=== PATIENT | male | born 1940 | race Caucasian/White ===

== ENCOUNTER 2025-07-07 11:21 | Emergency (ER) | payer MEDICARE, SELFPAY ==
[2025-07-07 11:26] VITALS: BP 116/68
[2025-07-07 12:29] LABS: COVID-19 Antigen Negative (Negative)
[2025-07-07 12:35] LABS: ALT (SGPT) 29 U/L (0-50); AST (SGOT) 21 U/L (17-59); Albumin 3.3 g/dl (3.5-5.0); Alkaline Phosphatase 97 U/L (38-126); Blood Urea Nitrogen 42 mg/dl (9-20); Calcium 8.7 mg/dl (8.4-10.2); Carbon Dioxide 20 mmol/L (22-30); Chloride 108 mmol/L (98-107); Glucose 83 mg/dl (70-99); Potassium 3.8 mmol/L (3.5-5.1); Sodium 132 mmol/L (135-145); Total Protein 5.4 g/dl (6.3-8.2); eGFR 20.94
[2025-07-07 12:37] LABS: Hematocrit 28.6 % (39.0-52.0); Hemoglobin 9.2 g/dL (13.0-18.0); Mean Corp Hgb Conc. 32.2 g/dL (33.0-37.0); Mean Corpuscular Volume 120.2 fL (80.0-94.0); Red Cell Dist. Width 15.4 % (11.5-14.5)
--- NOTE | 2025-07-07 13:16 | ED.GENMED ---
History of Present Illness
<Jaida Claudio PA-C - Last Filed: 07/07/25 15:27>
General
Chief Complaint: Breathing Problem
Time Seen by Provider: 07/07/25 12:27
History of Present Illness
History of Present Illness:
SEE mdm
Phy Exam
<Jaida Claudio PA-C - Last Filed: 07/07/25 15:27>
Physical Exam
Physical Exam:
SEE mdm
Scores
<Jaida Claudio PA-C - Last Filed: 07/07/25 15:27>
Heart Failure Risk
Heart Failure Risk Score: Not Applicable
Course
<Jaida Claudio PA-C - Last Filed: 07/07/25 15:27>
Orders/Labs/Results
Orders:
Orders
07/07/25 11:30
ECG [Electrocardiogram (*1)] Urgent
Reason for Study: Shortness of Breath
CR Chest - 2 Views Urgent
Comment:
Reason For Exam: SOB, cough
07/07/25 11:31
EKG- Treatment ONCE
07/07/25 11:41
COVID-19 Antigen Urgent
Source: Nasal Swab
Complete Blood Count/With Diff Urgent
Comprehensive Metabolic Panel Urgent
Influenza A+B Rapid Molecular Urgent
ANA Source: Nasal Swab
Specimen Description:
07/07/25 13:17
Pro-BNP [NT-proBNP] Urgent
07/07/25 14:09
Amoxicillin 500 mg/Clav 125 mg [Augmentin 500 mg/125 mg] 1 tablet PO NOW STA
Abnormal Lab Results
07/07/25
11:41
RBC 2.38 L 10^6/uL
(4.70-6.10)
Hgb 9.2 L g/dL
(13.0-18.0)
Hct 28.6 L %
(39.0-52.0)
MCV 120.2 H fL
(80.0-94.0)
MCH 38.7 H pg
(27.0-31.0)
MCHC 32.2 L g/dL
(33.0-37.0)
RDW 15.4 H %
(11.5-14.5)
MPV 14.1 H fL
(7.4-10.4)
Abs Immat Gran (auto) 0.3 H 10^3/uL
(0-0.05)
Immature Gran % 5.4 H %
(0-0.5)
Sodium 132 L mmol/L
(135-145)
Chloride 108 H mmol/L
(98-107)
Carbon Dioxide 20 L mmol/L
(22-30)
BUN 42 H mg/dl
(9-20)
Creatinine 2.9 H mg/dL
(0.7-1.3)
Total Protein 5.4 L g/dl
(6.3-8.2)
Albumin 3.3 L g/dl
(3.5-5.0)
07/07/25 11:41
07/07/25 11:41
Vital Signs
Initial and Last Documented VS:
Initial Vital Signs
Temp Pulse Resp BP Pulse Ox
36.4 C 60 20 116/68 100
07/07/25 11:26 07/07/25 11:26 07/07/25 11:26 07/07/25 11:26 07/07/25 11:26
Last Documented Vital Signs
Temp Pulse Resp BP Pulse Ox
37.0 C 53 20 131/85 96
07/07/25 14:36 07/07/25 14:36 07/07/25 14:36 07/07/25 14:36 07/07/25 14:36
<Dedrick Gamboa Yuri, DO - Last Filed: 07/07/25 14:44>
Orders/Labs/Results
Orders:
Orders
07/07/25 11:30
ECG [Electrocardiogram (*1)] Urgent
Reason for Study: Shortness of Breath
CR Chest - 2 Views Urgent
Comment:
Reason For Exam: SOB, cough
07/07/25 11:31
EKG- Treatment ONCE
07/07/25 11:41
COVID-19 Antigen Urgent
Source: Nasal Swab
Complete Blood Count/With Diff Urgent
Comprehensive Metabolic Panel Urgent
Influenza A+B Rapid Molecular Urgent
ANA Source: Nasal Swab
Specimen Description:
07/07/25 13:17
Pro-BNP [NT-proBNP] Urgent
07/07/25 14:09
Amoxicillin 500 mg/Clav 125 mg [Augmentin 500 mg/125 mg] 1 tablet PO NOW STA
Abnormal Lab Results
07/07/25
11:41
RBC 2.38 L 10^6/uL
(4.70-6.10)
Hgb 9.2 L g/dL
(13.0-18.0)
Hct 28.6 L %
(39.0-52.0)
MCV 120.2 H fL
(80.0-94.0)
MCH 38.7 H pg
(27.0-31.0)
MCHC 32.2 L g/dL
(33.0-37.0)
RDW 15.4 H %
(11.5-14.5)
MPV 14.1 H fL
(7.4-10.4)
Abs Immat Gran (auto) 0.3 H 10^3/uL
(0-0.05)
Immature Gran % 5.4 H %
(0-0.5)
Sodium 132 L mmol/L
(135-145)
Chloride 108 H mmol/L
(98-107)
Carbon Dioxide 20 L mmol/L
(22-30)
BUN 42 H mg/dl
(9-20)
Creatinine 2.9 H mg/dL
(0.7-1.3)
Total Protein 5.4 L g/dl
(6.3-8.2)
Albumin 3.3 L g/dl
(3.5-5.0)
07/07/25 11:41
07/07/25 11:41
Vital Signs
Initial and Last Documented VS:
Initial Vital Signs
Temp Pulse Resp BP Pulse Ox
36.4 C 60 20 116/68 100
07/07/25 11:26 07/07/25 11:26 07/07/25 11:26 07/07/25 11:26 07/07/25 11:26
Last Documented Vital Signs
Temp Pulse Resp BP Pulse Ox
37.0 C 53 20 131/85 96
07/07/25 14:36 07/07/25 14:36 07/07/25 14:36 07/07/25 14:36 07/07/25 14:36
<Jaida Claudio PA-C - Last Filed: 07/07/25 15:27>
MDM/Problems Addressed
Differential Diagnosis Includes:
see MDM
MDM/Problems Addressed:
Note:
CHIEF COMPLAINT(S)
Shortness of breath.
HISTORY OF PRESENT ILLNESS
The patient is an 84-year-old male with a known history of multiple myeloma who presents with shortness of breath. The symptoms began approximately one week ago and have progressively worsened. The patient reports visiting a walk-in clinic in [place]
where no blood work was performed; however, pneumonia was considered unlikely, and he was advised to visit the emergency department if symptoms persisted. The patient describes the shortness of breath as exacerbated by exertion, specifically when
lifting or performing physical tasks. The patient denies fever or chills. He reports a productive cough at times but cannot specify the type of sputum.
PAST MEDICAL AND SURIGICAL HISTORY
The patient has a history of multiple myeloma and has been treated at a cancer center. He has undergone a cardiac catheterization four years ago, and he has a history of hypertension. The patient denies any history of cardiac
stents or coronary artery bypass grafting.
SOCIAL DETERMINANTS AFFECTING HEALTH
The patient mentions having 'bossy kids' and family stress, implying some degree of family or household stress.
SOCIAL HISTORY
The patient has a history of smoking cigars in the past but no cigarette smoking.
PHYSICAL EXAM
GENERAL: Alert , in no apparent distress
EYE: pupils equal and reactive
NECK: Supple
ENT: b/l TM s clear, pharynx erythematous but no tonsillar hypertrophy or exudates
CARDIAC: Regular rate and rhythm, no edema
LUNGS: Clear breath sounds bilaterally, no acute respiratory distress, no wheezes/rales/rhonchi, occasional wet sounding cough
ABDOMEN: Soft, without focal tenderness, no r/g, no cvat, normal bowel sounds
NEUROLOGICAL: Alert and oriented, no focal neuro deficits
SKIN: Warm and dry, skin intact.
MUSCULOSKELETAL: Trace edema, symmetric well perfused.
PSYCH: Normal and appropriate interaction.
- Extremities: Swelling in the legs is noted, with a history of diuretic use as needed.
PROBLEM LIST
Acute:
- Shortness of breath with exertion.
- New-onset or undocumented atrial fibrillation.
Chronic:
- Multiple myeloma
- Hypertension
PLAN
The plan includes reviewing the chest X-ray and blood work results, managing the atrial fibrillation, and addressing the swelling in the legs. The patient will be further evaluated to determine if diuretics need adjustment based on symptoms and lab
work.
DIFFERENTIAL DIAGNOSIS
The Differential Diagnosis includes, in no particular order and is not limited to:
1. Heart failure exacerbation
2. Pulmonary embolism
3. Pneumonia
4. Pulmonary edema
5. Atrial fibrillation with rapid ventricular rate
6. Chronic obstructive pulmonary disease exacerbation
7. Anemia
8. Ischemic heart disease
9. Interstitial lung disease
10. Medication side effects.
84-year-old male with history of multiple myeloma on treatment, lenalidomide
On his off week currently here with 3 weeks of cough which is wet sounding, improved with guaifenesin but has not gone away, he now he has some dyspnea especially with exertion, more with lifting than with just walking. Patient says he just feels
more wiped out. He is not having any exertional chest pain, hemoptysis, significant edema in his legs. He did have a little bit of edema which is typical for him. He does travel to and from [place] where he is originally from and says that he did
recently travel there and back. He is never had a blood clot. On exam he is well-appearing, he does have a wet sounding cough but is not hypoxic or tachypneic. His EKG is a sinus rhythm with PACs and occasional PVC, he does not have A-fib as it
is read by the computer. I reviewed this with the ED attending who agreed. Patient also has no history of A-fib. His labs are a stable hemoglobin of 9.2 which he tells me is typical for him, platelets of 134 which is improved for him, he has a
creatinine of 2.9 which is also typical for him, he used to have a creatinine of 5 before his treatment initiated at the [facility] cancer center at [facility] with Dr. Green. Patient asked me to speak with Dr. Green or his staff regarding what
antibiotic to give him if I were going to give him 1. His chest x-ray was independently reviewed by me with out signs of pneumonia however I am going to treat him with Augmentin for bronchitis. I spoke with the nurse at the oncology center and she
was okay with him getting that. I also renally dosed it to be 500 mg twice daily for 7 to 10 days. Patient will follow-up with oncology, he did a walking pulse ox and did not desat and felt good
<Jaida Claudio PA-C - Last Filed: 07/07/25 15:27>
*Pulse Oximetry
SaO2: 100
Oxygen Mode of Delivery: Room air
Patient hypoxic: no (100)
*Critical Care Note
Total Time (30-74mins, 75-104mins- exclusive of procedures): Not Applicable
ED Attending Note
<Jaida Claudio PA-C - Last Filed: 07/07/25 15:27>
-
Portions of this chart may have been created with voice recognition software.� Occasional wrong word or��sound alike� substitutions may have occurred due to the inherent limitations of voice recognition software.
<Dedrick Welch DO - Last Filed: 07/07/25 14:44>
ED Attending Note
Patient seen and examined by attending physician: Yes
I performed the substantive portion of visit, reviewed & personally made and approve the management plan that is documented in note by myself or KEKE.: Yes
ED Attending Note:
I evaluated the patient at bedside. The patient's white count is normal, chest x-ray unremarkable, he is eager to go home. BNP is not significant elevated. Given his history of multiple myeloma actively being treated will also add antibiotics
although symptoms may be more viral in nature
Discharge Plan
Departure
Patient Disposition: Home (Routine Discharge)
Date of Disposition: 07/07/25
Time of Disposition: 14:23
Patient with high blood pressure during this ER visit?: No
Condition: Fair
Covid-19: Not Applicable
Discharge Problem:
Acute bronchitis
Instructions: Acute Bronchitis, Adult (DC)
Prescriptions:
New
amoxicillin-pot clavulanate [Augmentin] 500-125 mg tablet
1 tab PO Q12H Qty: 20 0RF
Referrals:
NONE,* [Family Provider, Internal Medicine]
Activity Restrictions/Additional Instructions:
Your workup here is pretty reassuring.
Your white count is normal, your chest x-ray was clear without obvious pneumonia. You had no signs of congestive heart failure.
I spoke with the nurse for your oncologist office who was okay with you getting antibiotics for bronchitis, Augmentin 500 mg twice a day for the next 7 to 10 days. I wrote you a 10-day prescription. Make sure to follow-up with them in the office.
Watch for any worsening symptoms like exertional chest pain or low oxygen when you walk or at rest. Certainly if you had the feeling like you are going to pass out or any discomfort you should return immediately
Otherwise see your oncologist this plan
make sure you take a probiotic while on the augmentin
use mucinex that is ok to keep using
Interventions
Interventions:
*Risk Screen - Suicide Last Done: 07/07/25 11:23
*General Assessment Last Done: 07/07/25 11:26
*Neglect/Abuse Screening Last Done: 07/07/25 13:25
*ED- Fall Risk Assessment Last Done: 07/07/25 13:25
*ED COVID-19 Vaccine History Last Done: 07/07/25 13:25
*ED Influenza Vaccine History Last Done: 07/07/25 13:25
ED- Cardiac Assessment Last Done: 07/07/25 13:25
ED- Pulmonary Assessment Last Done: 07/07/25 13:25
Discharge Date and Time
Print Language: HUNGARIAN
[2025-07-07 13:25] VITALS: BP 145/89; BMI 25.1
[2025-07-07 13:31] LABS: Platelet Count 134 10^3/uL (130-400)
[2025-07-07 13:33] LABS: Nucleated Red Blood Cells % 0 % (-)
[2025-07-07 14:36] VITALS: BP 131/85
== END 2025-07-07 15:30 | disposition home or self-care (01) ==
LOC: EMR 11:21
PROVIDERS: Emergency Medicine; Physician Assistant; EMERGENCY PHYSICIAN Emergency Medicine
DX: J20.9 Acute bronchitis, unspecified (principal); C90.00 Multiple myeloma not having achieved remission; I10 Essential (primary) hypertension; Z63.8 Other specified problems related to primary support group; Z87.891 Personal history of nicotine dependence
CPT/HCPCS: 99284; 71046; 80053; 83880; 85025; 87502; 87811; 93005

== ENCOUNTER 2025-07-27 11:00 | Emergency (ER) | payer MEDICARE, SELFPAY ==
[2025-07-27 11:11] VITALS: BP 133/82
--- NOTE | 2025-07-27 11:56 | ED.GENMED ---
History of Present Illness
General
Chief Complaint: Skin Problem
Time Seen by Provider: 07/27/25 11:42
History of Present Illness
History of Present Illness:
84-year-old male presents the emergency department for evaluation of a wound to the right forearm sustained after his dog jumped on him and scratched his skin off. This occurred 1 week ago. They have been dressing the area with antibacterial
ointment and burn dressings. He has a history multiple myeloma and they are presenting today for evaluation of wound care. No fever or chills
Review of Systems
Review of Systems
Allergies reviewed?: Yes
All Other Systems: ROS reviewed and negative except as documented in HPI and ROS
Phy Exam
Physical Exam
Physical Exam:
GEN: Well appearing, NAD, WDWN
HEENT: Oral mucosa moist, no scleral icterus
Cardiac: Regular rate
Lung: No respiratory distress, no tachypnea
MSK: No gross deformity or injuries
Skin: Good color, no pallor or jaundice, no rashes. 4 x 3 oval-shaped superficial skin tear to the right dorsal forearm, mild necrotic skin tissue but no erythema or purulent discharge
Neuro: AO x3, moves all extremities freely
Psych: Calm, cooperative
Course
Vital Signs
Initial and Last Documented VS:
Initial Vital Signs
Temp Pulse Resp BP Pulse Ox
97.5 F 62 16 133/82 98
07/27/25 11:11 07/27/25 11:11 07/27/25 11:11 07/27/25 11:11 07/27/25 11:11
Last Documented Vital Signs
Temp Pulse Resp BP Pulse Ox
97.5 F 62 16 133/82 98
07/27/25 11:11 07/27/25 11:11 07/27/25 11:11 07/27/25 11:11 07/27/25 11:58
MDM/Problems Addressed
MDM/Problems Addressed:
No signs of wound infection at this time. Appropriate wound care discussed. Will recommend outpatient wound care evaluation
*Pulse Oximetry
SaO2: 98
Oxygen Mode of Delivery: Room air
Patient hypoxic: no
*Critical Care Note
Total Time (30-74mins, 75-104mins- exclusive of procedures): Not Applicable
ED Attending Note
-
Portions of this chart may have been created with voice recognition software.� Occasional wrong word or��sound alike� substitutions may have occurred due to the inherent limitations of voice recognition software.
Discharge Plan
Departure
Patient Disposition: Home (Routine Discharge)
Date of Disposition: 07/27/25
Time of Disposition: 11:57
Patient with high blood pressure during this ER visit?: No
Discharge Problem:
Skin tear of forearm without complication
Instructions: Wound Care (DC)
Prescriptions:
No Action
amoxicillin-pot clavulanate [Augmentin] 500-125 mg tablet
1 tab PO Q12H Qty: 20 0RF
Referrals:
Ismael Driver MD [Active, Plastic Surgery]
Interventions
Interventions:
*Risk Screen - Suicide Last Done: 07/27/25 11:11
*General Assessment Last Done: 07/27/25 11:11
*Neglect/Abuse Screening Last Done: 07/27/25 11:11
*ED- Fall Risk Assessment Last Done: 07/27/25 11:11
*Nursing Disposition Last Done: 07/27/25 12:14
ED-Skin Assessment Last Done: 07/27/25 11:42
Discharge Date and Time
Discharge Date/Time: 07/27/25 12:14
Print Language: JAPANESE
== END 2025-07-27 12:14 | disposition home or self-care (01) ==
LOC: EMR 11:00
PROVIDERS: EMERGENCY PHYSICIAN Emergency Medicine
DX: S51.801A Unspecified open wound of right forearm, initial encounter (principal); W54.1XXA Struck by dog, initial encounter; C90.00 Multiple myeloma not having achieved remission
CPT/HCPCS: 99282